=== PATIENT | female | born 1990 | race Hispanic/Latino ===

== ENCOUNTER 2021-06-13 12:00 | Inpatient (IN) | payer BC ==
[~2021-06-13] VITALS: Ht 160 cm; Wt 64.4 kg
[~2021-06-13 12:00] MED LIST: MV-M1COM2 PO
[2021-06-17] MEDS ORDERED: CALDOLOR 800MG+NS 250ML 250 ML IV PRN (06:30)
[2021-06-17] MEDS ORDERED: LACTATED RINGERS 1000ML 1,000 ML IV SCH (06:30)
[2021-06-17] MEDS ORDERED: CEFAZOLIN SODIUM 1 GM VIAL IVP PRN (06:30)
[2021-06-17 08:01] LABS: MEAN CORPUSCULAR HEMOGLOBIN 30.5 pg (27.0-33.0); MEAN CORPUSCULAR HGB CONC 33.8 g/dL (32.0-36.0); MEAN CORPUSCULAR VOLUME 90.2 fL (79-99); RED BLOOD CELL COUNT(AUTO) 3.77 MIL/uL (4.00-5.50); RED CELL DISTRIBUTION WIDTH 13.1 % (11.0-15.5); WHITE BLOOD COUNT (AUTO) 10.1 K/uL (4.8-10.8)
[2021-06-17] MEDS ORDERED: CEFAZOLIN SODIUM 2 GM VIAL IV ONE (08:54)
[2021-06-17 09:10] LABS: RAPID PLASMA REAGIN NONREACTIVE (NONREACTIVE)
[2021-06-17] MEDS ORDERED: OXYTOCIN-LR 20 UNITS/1000 ML 1,000 ML IV ONE (09:46)
[2021-06-17] MEDS ORDERED: 0.9%NACL 10ML VIAL IVP PRN (11:30)
[2021-06-17] MEDS: CEFAZOLIN SODIUM 1 GM VIAL IVP SCH ×2 (11:30→18:53)
[2021-06-17] MEDS ORDERED: OXYTOCIN-LR 20 UNITS/1000 ML 1,000 ML IV PRN (11:30)
[2021-06-17] MEDS ORDERED: MEPERIDINE-PF 75 MG/ML SYG IM PRN (11:30)
[2021-06-17] MEDS ORDERED: PROMETHAZINE HCL 25 MG/ML 1ML AMPULE IM PRN (11:30)
[2021-06-17 14:14] VITALS: BP 93/57
[2021-06-17 16:04] VITALS: BP 104/68
[2021-06-17] MEDS: DEXTROSE 5 %-0.45 % NACL 1,000 ML IV PRN (18:23)
[2021-06-17 19:55] VITALS: BP 96/63
[2021-06-17 23:28] VITALS: BP 92/51
[2021-06-18] MEDS: DEXTROSE 5 %-0.45 % NACL 1,000 ML IV PRN (00:57)
[2021-06-18] MEDS ORDERED: ACETAMINOPHEN WITH CODEINE 1 TAB TAB PO PRN (03:00)
[2021-06-18] MEDS ORDERED: ACETAMINOPHEN 500 MG TABLET PO PRN (03:00)
[2021-06-18] MEDS: CEFAZOLIN SODIUM 1 GM VIAL IVP SCH (03:47)
[2021-06-18 04:08] VITALS: BP 94/59
[2021-06-18 06:13] LABS: HEMATOCRIT 30.8 % (36-48); MEAN CORPUSCULAR HEMOGLOBIN 31.3 pg (27.0-33.0); MEAN CORPUSCULAR HGB CONC 34.1 g/dL (32.0-36.0); MEAN CORPUSCULAR VOLUME 91.9 fL (79-99); RED BLOOD CELL COUNT(AUTO) 3.35 MIL/uL (4.00-5.50); RED CELL DISTRIBUTION WIDTH 13.2 % (11.0-15.5); WHITE BLOOD COUNT (AUTO) 10.5 K/uL (4.8-10.8)
[2021-06-18 08:00] VITALS: BP 107/64
[2021-06-18] MEDS ORDERED: BISACODYL 10 MG SUPP.RECT RC PRN (08:00)
[2021-06-18] MEDS ORDERED: SIMETHICONE 80 MG TAB.CHEW PO PRN (08:00)
[2021-06-18] MEDS ORDERED: DOCUSATE SODIUM 100 MG CAP PO SCH (09:00)
[2021-06-18] MEDS: IBUPROFEN 600 MG TABLET PO PRN ×2 (09:01→15:06)
[2021-06-18] MEDS ORDERED: ACET1TAB25 PO (10:43)
[2021-06-18 11:40] VITALS: BP 98/65
== END 2021-06-18 16:05 | disposition home or self-care (01) | DRG 788 ==
LOC: EDSTATUS 12:00 → LDH 06-17 05:46 → WSH 06-17 12:17
PROVIDERS: ADMIT Obstetrics & Gynecology; ATTEND Obstetrics & Gynecology
PROC: 10D00Z1 Extraction of Products of Conception, Low, Open Approach (ICD-10-PCS; principal; 2021-06-17 11:00)
DX: O34.211 Maternal care for low transverse scar from previous cesarean delivery (principal); O77.0 Labor and delivery complicated by meconium in amniotic fluid; Z37.0 Single live birth; Z3A.39 39 weeks gestation of pregnancy; Z91.040 Latex allergy status; Z91.018 Allergy to other foods
CPT/HCPCS: 36415; 59510; 85027; 86592; 86701; 86850; 86870; 86900; 86901; 86922; 87340; 87390; A4344; A4606; G0378; J0690; J1741; J2550; J2590

== ENCOUNTER 2023-05-18 08:00 | Inpatient (IN) | payer BC ==
[~2023-05-18] VITALS: Ht 160 cm; Wt 66.2 kg
[~2023-05-18 08:00] MED LIST changes: +ACET-2079 PO
[2023-05-18 16:16] LABS: BASOPHILS # (AUTO) 0.03 K/uL (0.00-0.20); BASOPHILS % (AUTO) 0.3 % (0.0-5.0); EOSINOPHILS # (AUTO) 0.03 K/uL (0.00-0.70); EOSINOPHILS % (AUTO) 0.3 % (0.0-8.0); HEMATOCRIT 37.4 % (36-48); IMMATURE GRANULOCYTE ABSOLUTE 0.05 K/uL (0-1); LYMPHOCYTES # (AUTO) 1.9 K/uL (1.0-4.8); MEAN CORPUSCULAR HEMOGLOBIN 29.7 pg (27.0-33.0); MEAN CORPUSCULAR HGB CONC 33.2 g/dL (32.0-36.0); MEAN CORPUSCULAR VOLUME 89.7 fL (79-99); MONOCYTES # (AUTO) 0.5 K/uL (0.1-1.0); MONOCYTES % (AUTO) 4.7 % (3.0-13.0); NEUTROPHILS # (AUTO) 7.6 K/uL (1.8-7.7); NEUTROPHILS % (AUTO) 75.2 % (40.0-77.0); PLATELET COUNT (AUTO) 153 K/uL (130-400); RED BLOOD CELL COUNT(AUTO) 4.17 MIL/uL (4.00-5.50); RED CELL DISTRIBUTION WIDTH 13.7 % (11.0-15.5); WHITE BLOOD COUNT (AUTO) 10.1 K/uL (4.8-10.8)
[2023-05-18 17:10] LABS: HIV 1&2 ANTIBODY Non-Reactive (Negative)
[2023-05-18 17:11] LABS: HIV-1 p24 Antigen Non-Reactive (Negative)
[2023-05-19] MEDS ORDERED: CEFAZOLIN SODIUM 2 GM VIAL IVPB PRN (07:30)
[2023-05-19] MEDS ORDERED: CALDOLOR 800MG+NS 250ML 250 ML IV PRN (07:30)
[2023-05-19] MEDS ORDERED: OXYTOCIN 10 USP UNITS/ML ONE ×2 (08:18→09:37)
[2023-05-19] MEDS ORDERED: DEXAMETHASONE SOD PHOSPHATE 10MG/ML 1ML VIAL ONE (08:18)
[2023-05-19] MEDS ORDERED: ONDANSETRON 4MG INJ ONE (08:18)
[2023-05-19] MEDS ORDERED: MORPHINE PF 100MG/10ML AMP IV ONE (09:14)
[2023-05-19] MEDS ORDERED: FENTANYL CITRATE PF 50 MCG/1 ML 2ML VIAL ONE (09:15)
[2023-05-19] MEDS ORDERED: CEFAZOLIN SODIUM 2 GM VIAL IVPB ONE (09:28)
[2023-05-19] MEDS ORDERED: PHENYLEPHRINE HCL 10 MG/ML 1ML VIAL IV ONE (09:34)
[2023-05-19] MEDS ORDERED: OXYTOCIN 10 UNIT/1ML 10ML VIAL ONE (09:37)
[2023-05-19] MEDS ORDERED: EPHEDRINE SULFATE 50 MG/ML AMPULE ONE ×2 (09:39→10:13)
[2023-05-19 11:30] LABS: RAPID PLASMA REAGIN NONREACTIVE (NONREACTIVE)
[2023-05-19] MEDS ORDERED: 0.9%NACL 10ML VIAL IVP PRN (11:30)
[2023-05-19] MEDS ORDERED: PROMETHAZINE HCL 25 MG/ML 1ML AMPULE IM PRN (11:30)
[2023-05-19] MEDS ORDERED: MEPERIDINE-PF 75 MG/ML SYG IM PRN (11:30)
[2023-05-19] MEDS ORDERED: DEXTROSE 5 %-0.45 % NACL 1,000 ML IV PRN (11:30)
[2023-05-19] MEDS ORDERED: OXYTOCIN-LR 30 UNITS/500ML 500 ML IV PRN (11:30)
[2023-05-19 15:36] VITALS: RESP 20
[2023-05-19] MEDS: CEFAZOLIN SODIUM 2 GM VIAL IVPB SCH (16:47)
[2023-05-19 17:19] VITALS: BP 97/63; PULSE 75; RESP 18
[2023-05-19 19:26] VITALS: BP 95/55; PULSE 76; RESP 20
[2023-05-19] MEDS: CALDOLOR 800MG+NS 250ML 250 ML IV SCH (20:06)
[2023-05-19 23:37] VITALS: BP 95/54; PULSE 73; RESP 20
[2023-05-20] MEDS: CEFAZOLIN SODIUM 2 GM VIAL IVPB SCH ×2 (01:01→08:34)
[2023-05-20] MEDS ORDERED: ACETAMINOPHEN 500 MG TABLET PO PRN (01:30)
[2023-05-20] MEDS ORDERED: HYDROCODONE/ACETAMINOPHEN 5/325 MG TAB PO PRN (01:30)
[2023-05-20] MEDS ORDERED: ACETAMINOPHEN WITH CODEINE 1 TAB TAB PO PRN (01:30)
[2023-05-20] MEDS ORDERED: BISACODYL 10 MG SUPP.RECT RC PRN (01:30)
[2023-05-20] MEDS ORDERED: LANOLIN 30GM OINTMENT TP PRN (01:30)
[2023-05-20] MEDS ORDERED: DIPHENHYDRAMINE HCL 25 MG CAPSULE PO PRN (01:30)
[2023-05-20] MEDS: CALDOLOR 800MG+NS 250ML 250 ML IV SCH (03:41)
[2023-05-20 03:43] VITALS: BP_SYST 96; BP_SYST 97; BP_DIAS 56; PULSE 80; RESP 20
[2023-05-20 06:53] LABS: HEMATOCRIT 31.2 % (36-48); MEAN CORPUSCULAR HEMOGLOBIN 30.3 pg (27.0-33.0); MEAN CORPUSCULAR HGB CONC 33.7 g/dL (32.0-36.0); MEAN CORPUSCULAR VOLUME 89.9 fL (79-99); RED BLOOD CELL COUNT(AUTO) 3.47 MIL/uL (4.00-5.50); WHITE BLOOD COUNT (AUTO) 12.7 K/uL (4.8-10.8)
[2023-05-20 07:27] VITALS: BP 96/61; PULSE 82; RESP 18
[2023-05-20] MEDS: DOCUSATE SODIUM 100 MG CAP PO SCH ×2 (08:34→21:04)
[2023-05-20 11:27] VITALS: BP 90/56; PULSE 82; RESP 18
[2023-05-20] MEDS: SIMETHICONE 80 MG TAB.CHEW PO PRN ×2 (13:49→21:04)
[2023-05-20] MEDS: IBUPROFEN 600 MG TABLET PO PRN ×2 (15:58→23:46)
[2023-05-20 16:11] VITALS: BP 112/67; PULSE 96; RESP 18
[2023-05-20 19:51] VITALS: BP 111/66; PULSE 88; RESP 19
[2023-05-20 23:33] VITALS: BP 99/59; PULSE 85; RESP 18
[2023-05-21 04:00] VITALS: BP 102/62; PULSE 72; RESP 17
[2023-05-21] MEDS: IBUPROFEN 600 MG TABLET PO PRN (06:09)
[2023-05-21 07:32] VITALS: BP 103/65; PULSE 83; RESP 18
[2023-05-21] MEDS: DOCUSATE SODIUM 100 MG CAP PO SCH (08:12)
== END 2023-05-21 10:50 | disposition home or self-care (01) | DRG 788 ==
LOC: UNDOADMIN 05-19 07:02 → LDH 05-19 07:02 → WSH 05-19 17:15
PROVIDERS: ADMIT Obstetrics & Gynecology; ATTEND Obstetrics & Gynecology
PROC: 10D00Z1 Extraction of Products of Conception, Low, Open Approach (ICD-10-PCS; principal; 2023-05-19 09:00)
DX: O82 Encounter for cesarean delivery without indication (principal); Z3A.39 39 weeks gestation of pregnancy; Z37.0 Single live birth; Z91.040 Latex allergy status
CPT/HCPCS: 36415; 59510; 85025; 85027; 86592; 86701; 86850; 86900; 86901; 86905; 86922; 87340; 87390; A4344; A4606; G0378; J1100; J1741; J2274; J2371; J2405; J2590; J3010; J3490; A4248; J0690; L0625